=== PATIENT | female | born 1960 | race Caucasian/White ===

== ENCOUNTER 2018-11-04 06:27 | Day surgery (SDC) | payer OTHER ==
[~2018-11-04 06:27] MED LIST: Lactated Ringers 1,000 ML IV SCH
[2018-11-04] MEDS ORDERED: Propofol 200 MG/20 ML SDV ONE (07:52)
[2018-11-04] MEDS ORDERED: fentaNYL 100 MCG/2 ML SDV ONE (07:53)
--- NOTE | 2018-11-04 13:02 | OR ---
PREOPERATIVE DIAGNOSIS: Positive FIT test. POSTOPERATIVE DIAGNOSIS: Mild sigmoid diverticulosis, otherwise normal exam. PROCEDURE PROPOSED: Total flexible colonoscopy. PROCEDURE DONE: Total flexible colonoscopy. INDICATION: This is a 58-year-old female who was referred for colonoscopy due to having a positive FIT test on recent annual physical. She denies any symptomatology and she has a negative family history for colon pathology. TECHNIQUE: The patient was brought to the endoscopy suite, placed in left lateral decubitus position. She was sedated per PEDIATRIC UROLOGIST with propofol. The flexible video colonoscope was then passed transanally and under visualization advanced to the cecum. Examination revealed a normal ascending, transverse, and descending colon. The sigmoid colon revealed very mild diverticulosis and the rectum was normal. There was no evidence of any polyps, colitis, or other abnormalities, and the scope was then withdrawn. She tolerated procedure well. FINAL IMPRESSION: Mild sigmoid diverticulosis, otherwise normal exam. PLAN: The patient was reassured. I felt she could wait 10 years before she needs a repeat colonoscopy. SCM: 11/04/2018 08:13:42 MODL: 11/04/2018 12:56:44 /[id number]
== END 2018-11-04 09:45 | disposition home or self-care (01) ==
LOC: VM.SDS 06:27
PROVIDERS: ATTEND Surgery
DX: R19.5 Other fecal abnormalities (principal); R14.0 Abdominal distension (gaseous); K57.30 Diverticulosis of large intestine without perforation or abscess without bleeding; Z87.891 Personal history of nicotine dependence; Z79.899 Other long term (current) drug therapy
CPT/HCPCS: 45378; J2704; J3010; J7120